=== PATIENT | male | born 1980 | race Caucasian/White ===

== ENCOUNTER 2020-08-07 09:48 | Emergency (ER) | payer BC ==
[2020-08-07 10:32] LABS: Basophils % 0.7 % (0-1.3); Hematocrit 42.9 % (39.6-49.0); Lymphocytes % 22.4 % (15.3-44.8); MPV 7.7 fL (7.6-11.3); RBC Red Blood Cell Count 5.38 M/uL (4.33-5.43)
[2020-08-07 10:34] LABS: Protime INR 1.1
--- NOTE | 2020-08-07 10:34 | RAD REPORT ---
EXAM DESCRIPTION: CT - Head Brain Wo Cont - 08/07/2020 10:23 am CLINICAL HISTORY: NUMBNESSleft upper and lower extremity numbness and tingling COMPARISON: CT head March 2011 TECHNIQUE: Axial 5 mm thick images of the head were obtained without IV contrast. All CT scans are performed using dose optimization technique as appropriate and may include automated exposure control or mA/KV adjustment according to patient size. FINDINGS: No intracranial hemorrhage, mass, edema or shift of mid-line structures. No acute infarcti on changes seen. No abnormal extra-axial fluid collections. Ventricles are normal. Mastoid air cells and visualized portions of the paranasal sinuses are clear. No acute bony findings. No significant changes from comparison. IMPRESSION: Negative non-contrast CT head examination.
--- NOTE | 2020-08-07 10:44 | RAD REPORT ---
EXAM DESCRIPTION: RAD - Chest Single View - 08/07/2020 10:39 am CLINICAL HISTORY: CHEST PAIN COMPARISON: May 2015 TECHNIQUE: AP portable chest image was obtained 08/07/2020 10:39 am . FINDINGS: Lungs are clear. Heart and vasculature are normal. No measurable pleural effusion and no p neumothorax. No acute bony abnormality seen. No acute aortic findings suspected. IMPRESSION: No acute cardiopulmonary process. No significant change from comparison study.
[2020-08-07 10:50] LABS: ALT/SGPT 27 U/L (12-78); AST/SGOT 17 U/L (15-37); Albumin 4.5 g/dL (3.4-5.0); Alkaline Phosphatase 55 U/L (45-117); BUN Blood Urea Nitrogen 15 mg/dL (7-18); Bicarbonate 25 mmol/L (21-32); Bilirubin Direct 0.1 mg/dL (0-0.2); Bilirubin Total 0.5 mg/dL (0.2-1.0); Glucose Level 94 mg/dL (74-106); Magnesium 2.2 mg/dL (1.8-2.4); NT PRO-BNP 24 pg/mL (<125); Potassium 3.9 mmol/L (3.5-5.1); Protein, Total 7.8 g/dL (6.4-8.2); Sodium Level 141 mmol/L (136-145); Troponin (Emerg Dept Use Only) < 0.02 ng/mL (0.0-0.045)
--- NOTE | 2020-08-07 11:48 | ER ---
Nurse's Notes [facility] Name: Jimmie Mcintyre Jr Age: 40 yrs Sex: Male : 1980 Arrival Date: 08/07/2020 Time: 09:50 Bed 4 Private MD: Diagnosis: Paresthesia of skin Presentation: 08/07 09:55 Chief complaint: Patient states: left foot tingling to left foot that began Friday, aa5 today left hand started hurting "like needles" and now moving up to left upper arm. 09:55 Acuity: CRISTINO 3 aa5 09:55 Method Of Arrival: Ambulatory aa5 09:55 Onset of symptoms was July 2020. aa5 Historical: - Allergies: :55 No Known Allergies; aa5 - Home Meds: :55 meloxicam oral oral [Active]; Methocarbamol Oral [Active]; aa5 - PMHx: 09:55 Hypertension; aa5 - PSHx: 10:04 Bowel resection; Hernia repair; Appendectomy; wrist surgery; iw Screenin:17 Abuse screen: Denies threats or abuse. Denies injuries from another. Nutritional iw screening: No deficits noted. Tuberculosis screening: No symptoms or risk factors identified. Fall Risk None identified. Assessment: 10:05 Reassessment: Narendra ANTON at the bedside. sv 10:16 General: Appears in no apparent distress. Behavior is calm, cooperative. Pain: iw Complains of pain in left arm. Neuro: Level of Consciousness is awake, alert, obeys commands, Oriented to person, place, time, situation, Moves all extremities. Full function. Neuro: Reports paresthesias in left hand and left foot. Cardiovascular: Patient's skin is warm and dry. Respiratory: Respiratory effort is even, unlabored, Respiratory pattern is regular, symmetrical. GI: Abdomen is non-distended. EENT: No signs and/or symptoms were reported regarding the EENT system. Derm: Skin is intact, is healthy with good turgor. Vital Signs: 10:15 BP 143 / 94; Pulse 91; Resp 16; Pulse Ox 97% on R/A; Weight 83.91 kg; Height 5 ft. 9 iw in. (175.26 cm); 10:15 Body Mass Index 27.32 (83.91 kg, 175.26 cm) iw NIH Stroke Scale Scores: 11:49 NIHSS Score: 0 jr8 ED Course: 09:50 Patient arrived in ED. rg4 09:55 Arm band placed on. aa5 09:56 Narendra Aparicio PA is PHCP. jr8 09:56 Jevon Hickey MD is Attending Physician. jr8 10:01 Honey Barton, RN is Primary Nurse. iw 10:11 Triage completed. aa5 10:15 Inserted saline lock: 20 gauge in right antecubital area, using aseptic technique. sv Blood collected. Flushed right antecubital with 5 ml normal saline. 10:23 CT Head Brain wo Cont In Process Unspecified. EDMS 10:28 Basic Metabolic Panel Sent. sv 10:28 LFT's Sent. sv 10:31 XRAY Chest (1 view) In Process Unspecified. EDMS 10:[address]. sv 10:48 EKG done, by ED staff, reviewed by Narendra ANTON. sv 11:48 Onur Horn MD is Referral Physician. jr8 Administered Medications: No medications were administered Outcome: 11:48 Discharge ordered by . jr8 12:17 Patient left the ED. mg2 NIH Stroke Scale - NIH Stroke Score Date: 08/07/2020 Time: 11:49 Total Score = 0 1a. Level of Consciousness (LOC) - 0(Alert) 1b. Level of Consciousness (LOC) (Year \\T\\ Age) - 0(Both) 1c. LOC Commands (Open \\T\\ Closes Eyes/Principal Accounts Clerk) - 0(Both) 2. Best Gaze (Lateral Gaze Paresis) - 0(Normal) 3. Visual Field Loss - 0(No visual loss) 4. Facial Palsy - 0(Normal) 5a. Left Arm: Motor (10-second hold) - 0(No drift) 5b. Right Arm: Motor (10-second hold) - 0(No drift) 6a. Left Leg: Motor (5-second hold - always test supine) - 0(No drift) 6b. Right Leg: Motor (5-second hold - always test supine) - 0(No drift) 7. Limb Ataxia (finger/nose \\T\\ heel/delgado - test with eyes open) - 0(Absent) 8. Sensory Loss (pinprick arms/legs/face) - 0(Normal) 9. Best Language: Aphasia (description/naming/reading) - 0(No aphasia) 10. Dysarthria (speech clarity - read or repeat words) - 0(Normal) 11. Extinction and Inattention (visual/tactile/auditory/spatial/personal) - 0(No abnormality) Initials: 8 Signatures: Dispatcher [employer] Alejandra Chun RN RN sv Williams, Irene, RN RN Marta Painter RN RN [email or web address] Narendra Aparicio PA PA jr8 Zeynep Hoyt4 Jeffy Hernandez RN RN mg2
--- NOTE | 2020-08-07 11:49 | EDPHYS ---
Physician Documentation [facility] Name: Jimmie Mcintyre Jr Age: 40 yrs Sex: Male : 1980 Arrival Date: 08/07/2020 Time: 09:50 Bed 4 Private MD: ED Physician Jevon Hickey HPI: 08/07 11:49 This 40 yrs old Male presents to ER via Ambulatory with complaints of jr8 Numbness Of Hand, Arm Pain, Foot Numbness. 11:49 Onset: The symptoms/episode began/occurred gradually, 3 day(s) ago. Duration: The jr8 episode is continuous. The symptoms are alleviated by nothing. The symptoms are aggravated by walking. Associated signs and symptoms: The patient has no apparent associated signs or symptoms. Severity of symptoms: At their worst the symptoms were mild in the emergency department the symptoms are unchanged. Patient's baseline: Neuro: alert and fully oriented, Motor: no deficits, Ambulation: walks without assistance, Speech: normal. The patient has not experienced similar symptoms in the past. The patient has not recently seen a physician. Patient stated that he started with tingling to ball of left foot on Friday that is now constant. Stated that now he has tingling on/off to left hand as well. One bout of dizziness. Denies any other neurologic findings. Denies having symptoms like this in past . Historical: - Allergies: 09:55 No Known Allergies; aa5 - Home Meds: 09:55 meloxicam oral oral [Active]; Methocarbamol Oral [Active]; aa5 - PMHx: 09:55 Hypertension; aa5 - PSHx: 10:04 Bowel resection; Hernia repair; Appendectomy; wrist surgery; iw ROS: 11:49 Constitutional: Negative for fever, chills, and weight loss. jr8 11:49 Neuro: Positive for dizziness, tingling. 11:49 All other systems are negative. Exam: :49 Radiologist reports: No mass, bleed, or ischemia jr8 11:49 Eyes: Pupils equal round and reactive to light, extra-ocular motions intact. Lids and lashes normal. Conjunctiva and sclera are non-icteric and not injected. Cornea within normal limits. Periorbital areas with no swelling, redness, or edema. ENT: Nares patent. No nasal discharge, no septal abnormalities noted. Tympanic membranes are normal and external auditory canals are clear. Oropharynx with no redness, swelling, or masses, exudates, or evidence of obstruction, uvula midline. Mucous membranes moist. Neck: Trachea midline, no thyromegaly or masses palpated, and no cervical lymphadenopathy. Supple, full range of motion without nuchal rigidity, or vertebral point tenderness. No Meningismus. Cardiovascular: Regular rate and rhythm with a normal S1 and S2. No gallops, murmurs, or rubs. Normal PMI, no JVD. No pulse deficits. Respiratory: Lungs have equal breath sounds bilaterally, clear to auscultation and percussion. No rales, rhonchi or wheezes noted. No increased work of breathing, no retractions or nasal flaring. Abdomen/GI: Soft, non-tender, with normal bowel sounds. No distension or tympany. No guarding or rebound. No evidence of tenderness throughout. Back: No spinal tenderness. No costovertebral tenderness. Full range of motion. Skin: Warm, dry with normal turgor. Normal color with no rashes, no lesions, and no evidence of cellulitis. MS/ Extremity: Pulses equal, no cyanosis. Neurovascular intact. Full, normal range of motion. Neuro: Awake and alert, GCS 15, oriented to person, place, time, and situation. Cranial nerves II-XII grossly intact. Motor strength 5/5 in all extremities. Sensory grossly intact. Cerebellar exam normal. Normal gait. Vital Signs: 10:15 BP 143 / 94; Pulse 91; Resp 16; Pulse Ox 97% on R/A; Weight 83.91 kg; Height 5 ft. 9 iw in. (175.26 cm); 10:15 Body Mass Index 27.32 (83.91 kg, 175.26 cm) NIH Stroke Scale Scores: 11:49 NIHSS Score: 0 jr8 MDM: 09:56 Patient medically screened. 8 11:40 Data reviewed: vital signs, nurses notes, lab test result(s), EKG, radiologic studies, jr8 CT scan, plain films, and as a result, I will discharge patient. Data interpreted: Pulse oximetry: on room air is 97 %. Interpretation: normal. Counseling: I had a detailed discussion with the patient and/or guardian regarding: the historical points, exam findings, and any diagnostic results supporting the discharge/admit diagnosis, lab results, radiology results, the need for outpatient follow up, a neurologist, to return to the emergency department if symptoms worsen or persist or if there are any questions or concerns that arise at home. ED course: Discussed with patient that there is no evident metabolic, hematologic, cardiac, or imaging findings to give light to the symptoms he is describing. Explained to him that this does not mean nothing is wrong but that we cannot find any emergent process. Will need to f/u with neurology. If symptoms were to get worse or change to come back for reevaluation. Patient good with plan . 08/07 10:12 Order name: Basic Metabolic Panel [facility] 08/07 10:12 Order name: CBC with Diff; Complete Time: [facility] 08/07 10:12 Order name: LFT's 08/07 10:12 Order name: Magnesium; Complete Time: : 08/07 10:12 Order name: NT PRO-BNP; Complete Time: : 08/07 10:12 Order name: PT-INR; Complete Time: 08/07 10:12 Order name: Troponin (emerg Dept Use Only); Complete Time: : 08/07 10:12 Order name: XRAY Chest (1 view); Complete Time: 08/07 10:12 Order name: EKG; Complete Time: 10:08/07 10:12 Order name: Cardiac monitoring; Complete Time: [facility] 08/07 10:12 Order name: EKG - Nurse/Tech; Complete Time: 08/07 10:12 Order name: CT Head Brain wo Cont; Complete Time: 08/07 10:13 Order name: Basic Metabolic Panel; Complete Time: 11: [facility] 08/07 10:13 Order name: Liver (Hepatic) Function; Complete Time: : [facility] 08/07 10:12 Order name: IV Saline Lock; Complete Time: 08/07 10:12 Order name: Labs collected and sent; Complete Time: [facility] 08/07 10:12 Order name: O2 Per Protocol; Complete Time: 08/07 10:12 Order name: O2 Sat Monitoring; Complete Time: 10:28 jr8 Administered Medications: No medications were administered Disposition: 08/07/20 11:48 Discharged to Home. Impression: Paresthesia of skin. - Condition is Stable. - Discharge Instructions: Paresthesia. - Prescriptions for Hydroxyzine HCl 50 mg Oral Tablet - take 1 tablet by ORAL route every 8 hours As needed; 20 tablet. - Medication Reconciliation Form, Thank You Letter, Antibiotic Education, Prescription Opioid Use form. - Follow up: Onur Horn MD; When: 2 - 3 days; Reason: Recheck today's complaints, Continuance of care, Re-evaluation by your physician. - Problem is new. - Symptoms are unchanged. NIH Stroke Scale - NIH Stroke Score Date: 08/07/2020 Time: 11:49 Total Score = 0 1a. Level of Consciousness (LOC) - 0(Alert) 1b. Level of Consciousness (LOC) (Year \T\ Age) - 0(Both) 1c. LOC Commands (Open \T\ Closes Eyes/Supervisor [employer]) - 0(Both) 2. Best Gaze (Lateral Gaze Paresis) - 0(Normal) 3. Visual Field Loss - 0(No visual loss) 4. Facial Palsy - 0(Normal) 5a. Left Arm: Motor (10-second hold) - 0(No drift) 5b. Right Arm: Motor (10-second hold) - 0(No drift) 6a. Left Leg: Motor (5-second hold - always test supine) - 0(No drift) 6b. Right Leg: Motor (5-second hold - always test supine) - 0(No drift) 7. Limb Ataxia (finger/nose \T\ heel/delgado - test with eyes open) - 0(Absent) 8. Sensory Loss (pinprick arms/legs/face) - 0(Normal) 9. Best Language: Aphasia (description/naming/reading) - 0(No aphasia) 10. Dysarthria (speech clarity - read or repeat words) - 0(Normal) 11. Extinction and Inattention (visual/tactile/auditory/spatial/personal) - 0(No abnormality) Initials: jr8 Addendum: 08/11/2020 19:25 Co-signature as Attending Physician, Jevon Hickey MD I agree with the tw assessment and plan of care. Signatures: Dispatcher [employer] Honey Breen RN RN iw Marta Kraus RN RN aa5 Narendra Aparicio PA PA jr8 Jevon Hickey MD MD tw4 Jeffy Hernandez, DIEGO RN mg2 Corrections: (The following items were deleted from the chart) 08/07 12:17 11:48 08/07/2020 11:48 Discharged to Home. Impression: Paresthesia of skin. mg2 Condition is Stable. Forms are Medication Reconciliation Form, Thank You Letter, Antibiotic Education, Prescription Opioid Use. Follow up: Onur Horn; When: 2 - 3 days; Reason: Recheck today's complaints, Continuance of care, Re-evaluation by your physician. Problem is new. Symptoms are unchanged. jr8
[2020-08-07 12:21] VITALS: BP 143/94; O2SAT 97
--- NOTE | 2020-08-08 10:01 | EKG ---
Test Date: 2020-08-07 Test Time: 10:48:11 Boom Man: JOSSELIN MEASUREMENT RESULTS: Intervals: Rate: 75 [place]: 144 QRSD: 80 QT: 362 QTc: 404 [place]: P: 26 [place]: 144 QRS: -2 T: 43 INTERPRETIVE STATEMENTS: Normal sinus rhythm Normal ECG Compared to ECG 06/22/2015 13:20:23 Sinus arrhythmia no longer present Electronically Signed On 08-08-20 09:59:36 GEOGRAPHIC ANALYST by Brice Gonzalez
== END 2020-08-07 12:17 | disposition home or self-care (01) ==
LOC: ER 09:48
DX: R20.2 Paresthesia of skin (principal); I10 Essential (primary) hypertension
CPT/HCPCS: 36415; 70450; 71045; 80048; 80076; 83735; 83880; 84484; 85025; 85610; 93005; 99284

== ENCOUNTER 2020-12-16 13:11 | Emergency (ER) | payer BC ==
[2020-12-16 15:01] LABS: Urine Blood Negative (Negative); Urine Glucose Negative (Negative); Urine Protein Negative (Negative); Urine pH 6.5 (5.0-7.0)
[2020-12-16 15:09] LABS: Basophils % 0.3 % (0-1.3); Hematocrit 43.1 % (39.6-49.0); Lymphocytes % 11.5 % (15.3-44.8); MPV 7.6 fL (7.6-11.3); RBC Red Blood Cell Count 5.48 M/uL (4.33-5.43)
--- NOTE | 2020-12-16 15:10 | RAD REPORT ---
EXAM DESCRIPTION: RAD - Chest Single View - 12/16/2020 3:02 pm CLINICAL HISTORY: Cough;Chest pain COMPARISON: Portable August 07 TECHNIQUE: AP portable chest image was obtained 12/16/2020 3:02 pm . FINDINGS: Lung volumes are normal. No dense consolidation. There is questionable minimal alveolar op acity in the left base. This is a very minimal finding and not substantially different from compariso n. Heart and vasculature are normal. No measurable pleural effusion and no pneumothorax. No acute bon y abnormality seen. No acute aortic findings suspected. IMPRESSION: Subtle prominence of the left lung base probably artifact of imaging rather than true in filtrate. This can be monitored on subsequent imaging.
[2020-12-16 15:23] LABS: Protime INR 1.21
[2020-12-16] MEDS ORDERED: NA CHLORIDE 0.9% 1,000 ML ONE (15:28)
[2020-12-16 15:29] LABS: ALT/SGPT 33 U/L (12-78); AST/SGOT 14 U/L (15-37); Albumin 4.6 g/dL (3.4-5.0); Alkaline Phosphatase 65 U/L (45-117); BUN Blood Urea Nitrogen 11 mg/dL (7-18); Bicarbonate 27 mmol/L (21-32); Bilirubin Direct 0.2 mg/dL (0-0.2); Bilirubin Total 0.7 mg/dL (0.2-1.0); Glucose Level 94 mg/dL (74-106); Lipase 62 U/L (73-393); Magnesium 2.7 mg/dL (1.8-2.4); NT PRO-BNP 15 pg/mL (<125); Potassium 3.8 mmol/L (3.5-5.1); Protein, Total 8.2 g/dL (6.4-8.2); Sodium Level 137 mmol/L (136-145); Troponin (Emerg Dept Use Only) < 0.02 ng/mL (0.0-0.045)
--- NOTE | 2020-12-16 16:10 | RAD REPORT ---
EXAM DESCRIPTION: CT - Chest For Pe Angio - 12/16/2020 3:46 pm CLINICAL HISTORY: CHEST PAIN COMPARISON: CTANGIO CHEST FOR PE dated 06/02/2015; Chest Single View dated 12/16/2020 TECHNIQUE: Dynamically enhanced 3 mm thick images of the chest were obtained during administration o f approximately 150mL Isovue 370 IV contrast. Coronal and oblique MIP reconstruction images were gene rated and reviewed. Exam utilizes a protocol to evaluate the pulmonary arterial tree. All CT scans are performed using dose optimization technique as appropriate and may include automated exposure control or mA/KV adjustment according to patient size. FINDINGS: No pulmonary emboli are identified. The aorta as imaged shows no acute or suspicious finding. No pericardial thickening or effusion. No focal infiltrate or mass in the lung parenchyma. Minimal prominent interstitial pattern noted comp ared to 1015 No pleural effusion or pleural thickening. No mediastinal or hilar suspicious masses. No chest wall masses or abnormal axillary lymphadenopathy. IMPRESSION: No pulmonary emboli identified. Minimal prominence of the interstitial pattern when compared to 2015. Findings may reflect a mild int erstitial edema or infiltrate.
--- NOTE | 2020-12-16 16:17 | EDPHYS ---
Physician Documentation [facility] Name: Jimmie Mcintyre Jr Age: 40 yrs Sex: Male : 1980 Arrival Date: 12/16/2020 Time: 13:12 Bed 23 Private MD: ED Physician Tomy Cruz HPI: 12/16 14:10 This 40 yrs old Male presents to ER via Ambulatory with complaints of Chest karley Pain, Shortness Of Breath. 14:10 The patient or guardian reports chest pain that is located primarily in the substernal karley area. Onset: 21 day(s) ago. The pain does not radiate. Associated signs and symptoms: The patient has no apparent associated signs or symptoms. The chest pain is described as a heaviness. Duration: The patient or guardian reports multiple episodes, that wax and wane. Modifying factors: The symptoms are alleviated by nothing. the symptoms are aggravated by nothing. Severity of pain: At its worst the pain was mild in the emergency department the pain is unchanged. Historical: - Allergies: 13:19 No Known Allergies; ll1 - PMHx: 13:19 Hypertension; ll1 - PSHx: 13:19 Bowel resection; Hernia repair; Appendectomy; wrist surgery; ll1 - Immunization history:: Flu vaccine is not up to date. - Social history:: Smoking status: Patient denies any tobacco usage or history of. - Family history:: not pertinent. ROS: 14:10 Constitutional: Negative for fever, chills, and weight loss, Eyes: Negative for injury, karley pain, redness, and discharge, ENT: Negative for injury, pain, and discharge, Neck: Negative for injury, pain, and swelling, Abdomen/GI: Negative for abdominal pain, nausea, vomiting, diarrhea, and constipation, Back: Negative for injury and pain, : Negative for injury, bleeding, discharge, and swelling, MS/Extremity: Negative for injury and deformity, Skin: Negative for injury, rash, and discoloration, Neuro: Negative for headache, weakness, numbness, tingling, and seizure, Psych: Negative for depression, anxiety, suicide ideation, homicidal ideation, and hallucinations, Allergy/Immunology: Negative for hives, rash, and allergies, Endocrine: Negative for neck swelling, polydipsia, polyuria, polyphagia, and marked weight changes, Hematologic/Lymphatic: Negative for swollen nodes, abnormal bleeding, and unusual bruising. 14:10 Cardiovascular: Positive for chest pain, of the chest. 14:10 Respiratory: Positive for cough, with no reported sputum. Exam: 14:10 Constitutional: This is a well developed, well nourished patient who is awake, alert, karley and in no acute distress. Head/Face: Normocephalic, atraumatic. Eyes: Pupils equal round and reactive to light, extra-ocular motions intact. Lids and lashes normal. Conjunctiva and sclera are non-icteric and not injected. Cornea within normal limits. Periorbital areas with no swelling, redness, or edema. ENT: Nares patent. No nasal discharge, no septal abnormalities noted. Tympanic membranes are normal and external auditory canals are clear. Oropharynx with no redness, swelling, or masses, exudates, or evidence of obstruction, uvula midline. Mucous membranes moist. Neck: Trachea midline, no thyromegaly or masses palpated, and no cervical lymphadenopathy. Supple, full range of motion without nuchal rigidity, or vertebral point tenderness. No Meningismus. Chest/axilla: Normal chest wall appearance and motion. Nontender with no deformity. No lesions are appreciated. Cardiovascular: Regular rate and rhythm with a normal S1 and S2. No gallops, murmurs, or rubs. Normal PMI, no JVD. No pulse deficits. Respiratory: Lungs have equal breath sounds bilaterally, clear to auscultation and percussion. No rales, rhonchi or wheezes noted. No increased work of breathing, no retractions or nasal flaring. Abdomen/GI: Soft, non-tender, with normal bowel sounds. No distension or tympany. No guarding or rebound. No evidence of tenderness throughout. Back: No spinal tenderness. No costovertebral tenderness. Full range of motion. Male : Normal genitalia with no discharge or lesions. Skin: Warm, dry with normal turgor. Normal color with no rashes, no lesions, and no evidence of cellulitis. MS/ Extremity: Pulses equal, no cyanosis. Neurovascular intact. Full, normal range of motion. Neuro: Awake and alert, GCS 15, oriented to person, place, time, and situation. Cranial nerves II-XII grossly intact. Motor strength 5/5 in all extremities. Sensory grossly intact. Cerebellar exam normal. Normal gait. Psych: Awake, alert, with orientation to person, place and time. Behavior, mood, and affect are within normal limits. 16:18 ECG was reviewed by the Attending Physician. karley 16:19 ECG was reviewed by the Attending Physician. karley Vital Signs: 13:17 BP 155 / 93; Pulse 116; Resp 16; Temp 99.3; Pulse Ox 97% ; Weight 83.46 kg; Height 5 ll1 ft. 9 in. (175.26 cm); Pain 3/10; 15:40 BP 121 / 80; Pulse 78; Resp 16; Pulse Ox 94% on R/A; zb 16:31 BP 130 / 80; Pulse 76; Resp 18; Pulse Ox 96% on R/A; zb 13:17 Body Mass Index 27.17 (83.46 kg, 175.26 cm) ll1 MDM: 13:20 Patient medically screened. karley 14:12 Differential diagnosis: abnormal EKG, acute myocardial infarction, anxiety, coronary karley artery disease chest wall pain, cholecystitis, Cholelithiasis costochondritis, esophagitis, gastritis, hiatal hernia, pancreatitis, pulmonary embolus, stable angina, unstable angina. HEART Score: History: Slightly Suspicious (0), ECG: Normal (0), Age: < or = 45 years (0), Risk Factors: 1 or 2 risk factors (1), [Hypertension] [+ Family HX] Troponin: < or = 1 x Normal Limit (0). The patient was given aspirin in the Emergency Department. The patient's deep vein thrombosis risk score was calculated as follows: Total Score: 0. This patient was found to be at low risk for a deep vein thrombosis by using the Well's assessment criteria. The patient's pulmonary embolism risk score was calculated as follows: the patients heart rate is greater than 100 beats per minute (1.5 Pts) Total Score: 0-2 points. This patient was found to be at low risk for a pulmonary embolism by using the Well's assessment criteria. OLIVERIO Risk Score: TOTAL SCORE = 0. Data reviewed: vital signs, nurses notes, lab test result(s), EKG, radiologic studies, CT scan, plain films. Data interpreted: monitoring specialist: rate is 116 beats/min, rhythm is regular, Pulse oximetry: on room air is 97 %. Test interpretation: by ED physician or midlevel provider: ECG, plain radiologic studies. 12/16 14:09 Order name: Basic Metabolic Panel; Complete Time: 15:50 [facility] [place] 12/16 14:09 Order name: CBC with Diff; Complete Time: 15:30 [facility] [place] 12/16 14:09 Order name: LFT's; Complete Time: 15:50 [facility] [place] 12/16 14:09 Order name: Magnesium; Complete Time: 15:50 [facility] [place] 12/16 14:09 Order name: NT PRO-BNP; Complete Time: 15:50 [facility] [place] 12/16 14:09 Order name: PT-INR; Complete Time: 15:30 [facility] [place] 12/16 14:09 Order name: Troponin (emerg Dept Use Only); Complete Time: 15:50 [facility] [place] 12/16 14:09 Order name: XRAY Chest (1 view); Complete Time: 15:30 [facility] [place] 12/16 14:09 Order name: Lipase; Complete Time: 15:34 [facility] [place] 12/16 14:09 Order name: CT Chest For PE Angio; Complete Time: 16:13 [facility] [place] 12/16 15:01 Order name: Urine Dipstick-Ancillary; Complete Time: 15:10 [facility] 12/16 16:15 Order name: Troponin (emerg Dept Use Only): now [facility] [place] 12/16 14:09 Order name: EKG; Complete Time: 14:10 [facility] [place] 12/16 14:09 Order name: Cardiac monitoring; Complete Time: 14:41 [facility] [place] 12/16 14:09 Order name: EKG - Nurse/Tech; Complete Time: 15:09 [facility] [place] 12/16 14:09 Order name: IV Saline Lock; Complete Time: 15:09 [facility] [place] 12/16 14:09 Order name: Labs collected and sent; Complete Time: 14:41 [facility] [place] 12/16 14:09 Order name: O2 Per Protocol; Complete Time: 14:41 [facility] [place] 12/16 14:09 Order name: O2 Sat Monitoring; Complete Time: 14:41 [facility] [place] 12/16 14:09 Order name: Urine Dipstick-Ancillary (obtain specimen); Complete Time: 15:09 [facility] [place] 12/16 15:21 Order name: EKG; Complete Time: 15:22 [facility] [place] 12/16 15:21 Order name: EKG - Nurse/Tech; Complete Time: 16:05 [facility] [place] EC:18 Rate is 85 beats/min. Rhythm is regular. QRS [place] is Normal. PA interval is normal. QRS karley interval is normal. QT interval is normal. No Q waves. T waves are Normal. No ST changes noted. Clinical impression: NSR w/ Non-specific ST/T Changes and No evidence of ischemia. Interpreted by me. Reviewed by me. 16:19 Rate is 77 beats/min. Rhythm is regular. QRS [place] is Normal. PA interval is normal. QRS karley interval is normal. QT interval is normal. No Q waves. T waves are Normal. No ST changes noted. Clinical impression: Normal ECG and No evidence of ischemia. Interpreted by me. Reviewed by me. Administered Medications: 15:09 Drug: NS 0.9% 1000 ml Route: IV; Rate: 1 bolus; Site: right antecubital; zb 16:05 Follow up: Response: No adverse reaction; IV Status: Completed infusion; IV Intake: zb 1000ml 16:27 Drug: ToPROL XL (metoprolol SUCCINATE) 25 mg Route: PO; zb 17:00 Follow up: Response: No adverse reaction zb 16:30 Drug: Pepcid (famotidine) 20 mg Route: IVP; Site: right antecubital; zb 17:00 Follow up: Response: No adverse reaction zb Disposition: 12/16/20 16:17 Discharged to Home. Impression: Chest pain, unspecified, Palpitations. - Condition is Fair. - Discharge Instructions: Nonspecific Chest Pain, Palpitations, Nonspecific Chest Pain, [id number], Aspirin and Your Heart, Palpitations, [id number]. - Prescriptions for Toprol XL 25 mg Oral Tablet - take 1 tablet by ORAL route once daily; 20 tablet. Pepcid 20 mg Oral Tablet - take 1 tablet by ORAL route every 12 hours for 10 days; 20 tablet. - Medication Reconciliation Form, Thank You Letter, Antibiotic Education, Prescription Opioid Use form. - Follow up: Private Physician; When: 2 - 3 days; Reason: Recheck today's complaints, Continuance of care, Re-evaluation by your physician. Follow up: Brice Gonzalez MD; When: 2 - 3 days; Reason: Recheck today's complaints, Re-evaluation by your physician. - Problem is new. - Symptoms have improved. Signatures: Dispatcher [employer] EDMS Tomy Cruz MD MD cha Attema, Lee, HYDRO STATION SUPERVISOR-C HYDRO STATION SUPERVISOR-Cla1 Jayjay Powell RN RN ll1 Heena Conroy RN RN zb Corrections: (The following items were deleted from the chart) 16:21 16:17 12/16/2020 16:17 Discharged to Home. Impression: Chest pain, unspecified; karley Palpitations. Condition is Fair. Forms are Medication Reconciliation Form, Thank You Letter, Antibiotic Education, Prescription Opioid Use. Follow up: Private Physician; When: 2 - 3 days; Reason: Recheck today's complaints, Continuance of care, Re-evaluation by your physician. Problem is new. Symptoms have improved. karley 17:09 16:21 12/16/2020 16:17 Discharged to Home. Impression: Chest pain, unspecified; zb Palpitations. Condition is Fair. Discharge Instructions: Nonspecific Chest Pain, Palpitations, Nonspecific Chest Pain, [id number], Aspirin and Your Heart, Palpitations, [id number]. Prescriptions for Toprol XL 25 mg Oral Tablet - take 1 tablet by ORAL route once daily; 20 tablet. and Forms are Medication Reconciliation Form, Thank You Letter, Antibiotic Education, Prescription Opioid Use. Follow up: Private Physician; When: 2 - 3 days; Reason: Recheck today's complaints, Continuance of care, Re-evaluation by your physician. Follow up: Brice Gonzalez; When: 2 - 3 days; Reason: Recheck today's complaints, Re-evaluation by your physician. Problem is new. Symptoms have improved. karley
--- NOTE | 2020-12-16 16:17 | ER ---
Nurse's Notes [facility] Name: Jimmie Mcintyre Jr Age: 40 yrs Sex: Male : 1980 Arrival Date: 12/16/2020 Time: 13:12 Bed 23 Private MD: Diagnosis: Chest pain, unspecified;Palpitations Presentation: 12/16 13:17 Chief complaint: Patient states: CP int. for 3 weeks with random episodes of SOB. Sent ll1 in by Eva for eval. Coronavirus screen: Client denies travel out of the [place] in the last 14 days. At this time, the client does not indicate any symptoms associated with coronavirus-19. Ebola Screen: Patient denies travel to an Ebola-affected area in the 21 days before illness onset. Initial Sepsis Screen: Does the patient meet any 2 criteria? HR > 90 bpm. No. Patient's initial sepsis screen is negative. Does the patient have a suspected source of infection? No. Patient's initial sepsis screen is negative. Risk Assessment: Do you want to hurt yourself or someone else? Patient reports no desire to harm self or others. Onset of symptoms was November 25, 2020. 13:17 Method Of Arrival: Ambulatory ll1 13:17 Acuity: CRISTINO 3 ll1 Historical: - Allergies: 13:19 No Known Allergies; ll1 - PMHx: 13:19 Hypertension; ll1 - PSHx: 13:19 Bowel resection; Hernia repair; Appendectomy; wrist surgery; ll1 - Immunization history:: Flu vaccine is not up to date. - Social history:: Smoking status: Patient denies any tobacco usage or history of. - Family history:: not pertinent. Screenin:12 Abuse screen: Denies threats or abuse. Denies injuries from another. Nutritional zb screening: No deficits noted. Tuberculosis screening: No symptoms or risk factors identified. Fall Risk None identified. Assessment: 14:30 General: Appears uncomfortable, Behavior is calm, cooperative, appropriate for age, zb Denies fever, feeling ill, fatigue, chills. Pain: Complains of pain in chest Pain does not radiate. Pain currently is 3 out of 10 on a pain scale. Quality of pain is described as aching, tender, Pain began 2-3 days ago. Is continuous. Neuro: Level of Consciousness is awake, alert, obeys commands. Cardiovascular: Reports shortness of breath, Heart tones S1 S2 present Capillary refill < 3 seconds Patient's skin is warm and dry. Rhythm is sinus tachycardia. Cardiovascular: Pulses are all present. Chest pain is described as mild, quality is sharp, is located in right left anterior began 2-3 weeks. episodes are continuous is aggravated by activity. Respiratory: Airway is patent Respiratory effort is even, unlabored, Respiratory pattern is regular, symmetrical. GI: No deficits noted. Derm: Skin is intact, is healthy with good turgor. Musculoskeletal: No deficits noted. 15:40 Reassessment: Patient appears in no apparent distress at this time. Patient and/or zb family updated on plan of care and expected duration. Pain level reassessed. Patient is alert, oriented x 3, equal unlabored respirations, skin warm/dry/pink. taken to CT. 16:31 Reassessment: Patient appears in no apparent distress at this time. Patient and/or zb family updated on plan of care and expected duration. Pain level reassessed. Patient is alert, oriented x 3, equal unlabored respirations, skin warm/dry/pink. 16:45 Reassessment: d/c pending tropinin result. zb Vital Signs: 13:17 BP 155 / 93; Pulse 116; Resp 16; Temp 99.3; Pulse Ox 97% ; Weight 83.46 kg; Height 5 ll1 ft. 9 in. (175.26 cm); Pain 3/10; 15:40 BP 121 / 80; Pulse 78; Resp 16; Pulse Ox 94% on R/A; zb 16:31 BP 130 / 80; Pulse 76; Resp 18; Pulse Ox 96% on R/A; zb 13:17 Body Mass Index 27.17 (83.46 kg, 175.26 cm) ll1 ED Course: 13:12 Patient arrived in ED. as 13:18 Triage completed. ll1 13:19 Arm band placed on Patient placed in an exam room, on a stretcher. ll1 13:20 Tomy Cruz MD is Attending Physician. [facility] 14:17 Heena Conroy RN is Primary Nurse. zb 14:30 Patient has correct armband on for positive identification. Bed in low position. Call zb light in reach. Side rails up X 1. emergency services professional on. Pulse ox on. NIBP on. Door closed. Noise minimized. Warm blanket given. PO fluids given. 14:30 Initial lab(s) drawn, by me, sent to lab. Urine collected: clean catch specimen, clear, zb EKG done, by ED staff, reviewed by Tomy Cruz MD. Inserted saline lock: 20 gauge in right antecubital area, using aseptic technique. Blood collected. Patient maintains SpO2 saturation greater than 95% on room air. 15:02 XRAY Chest (1 view) In Process Unspecified. EDMS 15:46 CT Chest For PE Angio In Process Unspecified. EDMS 16:21 Brice Gonzalez MD is Referral Physician. [facility] 17:09 No provider procedures requiring assistance completed. IV discontinued, intact, zb bleeding controlled, No redness/swelling at site. Pressure dressing applied. Administered Medications: 15:09 Drug: NS 0.9% 1000 ml Route: IV; Rate: 1 bolus; Site: right antecubital; zb 16:05 Follow up: Response: No adverse reaction; IV Status: Completed infusion; IV Intake: zb 1000ml 16:27 Drug: ToPROL XL (metoprolol SUCCINATE) 25 mg Route: PO; zb 17:00 Follow up: Response: No adverse reaction zb 16:30 Drug: Pepcid (famotidine) 20 mg Route: IVP; Site: right antecubital; zb 17:00 Follow up: Response: No adverse reaction zb Intake: 16:05 IV: 1000ml; Total: 1000ml. zb Outcome: 16:17 Discharge ordered by . [facility] 17:09 Discharged to home ambulatory. zb 17:09 Condition: stable 17:09 Discharge instructions given to patient, Instructed on discharge instructions, follow up and referral plans. medication usage, Demonstrated understanding of instructions, follow-up care, medications, Prescriptions given X 2. 17:09 Patient left the ED. zb Signatures: Dispatcher [employer] EDTomy Contreras MD MD cha Martinez, Amelia as Lewis, Lynsay, RN RN ll1 Heena Conroy RN RN zb Corrections: (The following items were deleted from the chart) 16:34 16:31 Pulse 76bpm; Resp 18bpm; Pulse Ox 96% RA; zb zb
[2020-12-16] MEDS ORDERED: METOPROLOL XL 50 MG TAB PO ONE (16:41)
[2020-12-16] MEDS ORDERED: METOPROLOL TAR 25 MG TAB ONE (16:41)
[2020-12-16] MEDS ORDERED: FAMOTIDINE 20 MG/2 ML VIAL IV ONE (16:43)
[2020-12-16 17:44] VITALS: TEMP 99.3
[2020-12-16 17:47] VITALS: BP 130/80; O2SAT 96
--- NOTE | 2020-12-17 08:45 | EKG ---
Test Date: 2020-12-16 Test Time: 15:56:00 Meat Cutter: GABBIE MEASUREMENT RESULTS: Intervals: Rate: 77 MI: 168 QRSD: 100 QT: 384 QTc: 434 [place]: P: 86 MI: 168 QRS: 48 T: 73 INTERPRETIVE STATEMENTS: Normal sinus rhythm Normal ECG Compared to ECG 12/16/2020 14:44:42 ST (T wave) deviation no longer present Electronically Signed On 12-17-20 08:43:15 CDT by Brice Gonzalez
--- NOTE | 2020-12-17 08:45 | EKG ---
Test Date: 2020-12-16 Test Time: 14:44:42 Lining Finisher: KENNEY MEASUREMENT RESULTS: Intervals: Rate: 85 NE: 164 QRSD: 80 QT: 374 QTc: 445 [place]: P: 87 NE: 164 QRS: 54 T: 96 INTERPRETIVE STATEMENTS: Normal sinus rhythm Nonspecific ST and T wave abnormality Abnormal ECG Compared to ECG 08/07/2020 10:48:11 ST (T wave) deviation now present Electronically Signed On 12-17-20 08:43:17 CDT by Brice Gonzalez
== END 2020-12-16 17:09 | disposition home or self-care (01) ==
LOC: ER 13:11
DX: R00.2 Palpitations (principal); I10 Essential (primary) hypertension
CPT/HCPCS: 93005 ×2; 85025; 80048; 36415; 83735; 85610; 80076; 81003; 84484 ×2; 83690; 83880; 71275; 71045; Q9967; J7030; 96361; 96374; 99285